=== PATIENT | female | born 1975 | race Caucasian/White ===

== ENCOUNTER 2018-09-10 08:41 | Inpatient (IN) | payer OTHER ==
[~2018-09-10] VITALS: Ht 167.6 cm; Wt 48.5 kg
--- NOTE | ~2018-09-10 | EKG ---
[place], [place] ELECTROCARDIOGRAM REPORT NAME: GANESH CABALLERO UNIT #: [id number] ROOM: 504 DOCTOR: CARISSA DRAFT REPORT BIRTHDATE: [birth year] [facility] Test Date: 2018-09-10 Test Time: 08:48:10 Pat Name: GANESH CABALLERO Department: Room: 504 Gender: F Employee Relations Specialist: : 1975 Requested By: RICKI DELEON Order Number: [id number] Reading MD: Silvia Casey MD Measurements Intervals [place] Rate: 67 P: 79 UT: 124 QRS: 77 QRSD: 73 T: 13 QT: 399 QTc: 422 Interpretive Statements Sinus rhythm Minimal ST depression, inferior leads Compared to ECG 07/20/2018 23:13:22 ST (T wave) deviation now present Electronically Signed On 09-11-2018 4:15:40 PDT by Silvia Casey MD CM:EKGRPT:ELECTROCARDIOGRAM REPORT [id number] RICKI FERRER DRAFT REPORT RICKI DELEON M.D.
--- NOTE | ~2018-09-10 | EKG ---
[place], [place] ELECTROCARDIOGRAM REPORT NAME: GANESH CABALLERO UNIT #: ROOM: DOCTOR: EPIPHANY DRAFT REPORT BIRTHDATE: [birth year] [facility] Test Date: 2018-09-10 Test Time: 08:48:10 Pat Name: GANESH CABALLERO Department: Patient ID: ELOH- Room: Gender: Laundry Room Attendant: : 1975 Requested By: RICKI DELEON Order Number: [id number] Reading MD: Measurements Intervals [place] Rate: 67 P: 79 AK: 124 QRS: 77 QRSD: 73 T: 13 QT: 399 QTc: 422 Interpretive Statements Sinus rhythm Minimal ST depression, inferior leads Compared to ECG 07/20/2018 23:13:22 ST (T wave) deviation now present CM:EKGRPT:ELECTROCARDIOGRAM REPORT [id number] RICKI FERRER DRAFT REPORT RICKI DELEON M.D.
--- NOTE | ~2018-09-10 | EKG ---
[place], [place] ELECTROCARDIOGRAM REPORT NAME: GANESH CABALLERO UNIT #: [id number] ROOM: 504 DOCTOR: CARISSA DRAFT REPORT BIRTHDATE: [birth year] [facility] Test Date: 2018-09-10 Test Time: 14:42:26 Pat Name: GANESH CABALLERO Department: Room: 504 Gender: F Jet Engine Mechanic: Kendra Levin : 1975 Requested By: RICKI DELEON Order Number: [id number] Reading MD: Silvia Casey MD Measurements Intervals [place] Rate: 62 P: 42 DE: 106 QRS: 74 QRSD: 76 T: 63 QT: 412 QTc: 419 Interpretive Statements Sinus rhythm Short DE interval Baseline wander in lead(s) V5 No previous ECG available for comparison Electronically Signed On 09-11-2018 5:00:18 PDT by Silvia Casey MD CM:EKGRPT:ELECTROCARDIOGRAM REPORT [id number] RICKI FERRER DRAFT REPORT RICKI DELEON M.D.
--- NOTE | ~2018-09-10 | EKG ---
[place], [place] ELECTROCARDIOGRAM REPORT NAME: GANESH CAABLLERO UNIT #: [id number] ROOM: 504 DOCTOR: CARISSA DRAFT REPORT BIRTHDATE: [birth year] [facility] Test Date: 2018-09-10 Test Time: 12:47:11 Pat Name: GANESH CABALLERO Department: Room: 504 Gender: F [employer] Teacher: Kendra Levin : 1975 Requested By: RICKI DELEON Order Number: [id number] Reading MD: Silvia Casey MD Measurements Intervals [place] Rate: 60 P: 46 VT: 109 QRS: 73 QRSD: 72 T: 73 QT: 421 QTc: 421 Interpretive Statements Sinus rhythm Short VT interval No previous ECG available for comparison Electronically Signed On 09-11-2018 4:17:45 PDT by Silvia Casey MD CM:EKGRPT:ELECTROCARDIOGRAM REPORT [id number] RICKI FERRER DRAFT REPORT RICKI DELEON M.D.
[2018-09-10 08:52] VITALS: BP 138/83
[2018-09-10 09:07] LABS: BASO # 0.1 10*3/uL (0.0-0.1); BASO % 0.6 % (0.0-1.0); EOS % 0.4 % (1.0-4.0); LYMPH # 1.2 10*3/uL (1.3-4.4); LYMPH % 11.2 % (27.0-41.0); MEAN CELL VOLUME 95.5 fl (81.0-99.0); MEAN CORPUSCULAR HGB 31.8 pg (27.0-31.0); MEAN CORPUSCULAR HGB CONC 33.3 g/dl (33.0-37.0); MEAN PLATELET VOLUME 9.6 fl (9.6-12.3); MONO # 0.6 10*3/uL (0.1-1.0); MONO % 5.3 % (3.0-9.0); NEUT # 8.8 10*3/uL (2.3-7.9); NEUT % 82.1 % (47.0-73.0); PLATELET COUNT AUTOMATED 218 10*3/uL (130-400); RED BLOOD COUNT 4.71 10*6/uL (4.10-5.10); RED CELL DISTRI WIDTH 12.9 % (0-14.5); WHITE BLOOD COUNT 10.7 10*3/uL (4.8-10.8)
[2018-09-10 09:16] LABS: ACT PARTIAL THROMBO TIME 24.2 SECONDS (20.0-32.1)
[2018-09-10 09:19] LABS: ALBUMIN 4.6 gm/dl (3.1-4.5); ALKALINE PHOSPHATASE 86 U/L (45-117); BUN 17 mg/dl (7-24); CHLORIDE 105 mmol/L (98-107); CREATININE 0.96 mg/dL (0.55-1.02); POTASSIUM 3.2 mmol/L (3.5-5.1); SGOT/AST 20 IU/L (3-35); SGPT/ALT 20 U/L (12-78); SODIUM 141 mmol/L (136-145); TOTAL PROTEIN 7.9 gm/dL (6.4-8.2)
[2018-09-10 09:21] LABS: TROPONIN I < 0.015 ng/ml (<0.045)
[2018-09-10 10:45] VITALS: BP 128/71
--- NOTE | 2018-09-10 10:45 | NUR ---
PATIENT TAKEN TO 5TH FLOOR AT THIS TIME BY THIS NURSE. SHE DENIES ANY WOUNDS. A&OX4.
[2018-09-10 11:00] VITALS: BP 143/72
--- NOTE | 2018-09-10 11:00 | NUR ---
A 43, admitted to , under the services of NATE Armstrong DO with a diagnosis of CHEST PAIN. Chief complaint is CHEST PAIN. Patient arrived via bed from ER. Monitor applied. Initial assessment completed. Vital signs taken and recorded. NATE ARMSTRONG DO notified of admission to the unit. Orders received. See assessment for past medical history, medications and allergies. Patient and/or family oriented to unit. [facility] visitation policy reviewed. Clothing/patient valuable form completed. SUZETTE AGUIRRE
--- NOTE | 2018-09-10 11:01 | NUR ---
BEDSIDE REPORT GIVEN TO JIMMY RN AT THIS TIME.
[2018-09-10] MEDS ORDERED: LOSARTAN-HCTZ1 EAC1 PO (11:13)
[2018-09-10] MEDS ORDERED: SOMA350 MG PO (11:13)
[2018-09-10] MEDS ORDERED: NORVASC5 MG PO (11:14)
[2018-09-10] MEDS ORDERED: CELEXA20 MG PO (11:14)
--- NOTE | 2018-09-10 11:14 | NUR ---
PHARMACY CALLED AT THIS TIME. MED LIST UPDATED PER POLICY.
[2018-09-10] MEDS ORDERED: PERCOCET 5-3251 EACH PO (11:15)
--- NOTE | 2018-09-10 15:51 | NUR ---
PT REQUESTS NICOTINE PATCH. DR STAUFFER NOTIFIED.
[2018-09-10 16:00] VITALS: BP 124/76
--- NOTE | 2018-09-10 19:30 | NUR ---
Patient is resting in bed with easy and regular respers on room air. Assessment is complete with no c/o or s/s of distress noted at this time. Bed is low, locked, and call light is within reach. Will continue to monitor.
[2018-09-10 20:00] VITALS: BP 132/67
--- NOTE | 2018-09-10 22:50 | NUR ---
Patient is resting in bed with no c/o or s/s of distress noted at this time. Call light is within reach.
[2018-09-11] VITALS: BP 114/73
--- NOTE | 2018-09-11 04:00 | NUR ---
Patient sleeping with easy and regular respers on room air. Call light is within reach, see shift assessment.
[2018-09-11 06:39] LABS: BUN 13 mg/dl (7-24); CHLORIDE 109 mmol/L (98-107); CHOLESTEROL 200 mg/dL (<200); CREATININE 0.88 mg/dL (0.55-1.02); HDL CHOLESTEROL 63 mg/dl (40-60); LDL CHOLESTEROL 124 mg/dL (9-159); SODIUM 142 mmol/L (136-145); TRIGLYCERIDES 65 mg/dl (<150); VLDL CHOLESTEROL 13 mg/dL (6-40)
[2018-09-11 06:45] LABS: BASO # 0.1 10*3/uL (0.0-0.1); BASO % 0.8 % (0.0-1.0); EOS # 0.1 10*3/uL (0.0-0.4); EOS % 1.2 % (1.0-4.0); HEMATOCRIT 45.1 % (37.0-47.0); HEMOGLOBIN 14.6 g/dl (12.0-16.0); LYMPH # 2.1 10*3/uL (1.3-4.4); LYMPH % 22.7 % (27.0-41.0); MEAN CELL VOLUME 97.4 fl (81.0-99.0); MEAN CORPUSCULAR HGB 31.5 pg (27.0-31.0); MEAN CORPUSCULAR HGB CONC 32.4 g/dl (33.0-37.0); MEAN PLATELET VOLUME 9.8 fl (9.6-12.3); MONO # 0.5 10*3/uL (0.1-1.0); MONO % 5.4 % (3.0-9.0); NEUT # 6.5 10*3/uL (2.3-7.9); NEUT % 69.6 % (47.0-73.0); PLATELET COUNT AUTOMATED 197 10*3/uL (130-400); RED BLOOD COUNT 4.63 10*6/uL (4.10-5.10); WHITE BLOOD COUNT 9.3 10*3/uL (4.8-10.8)
--- NOTE | 2018-09-11 07:44 | NUR ---
pt resting in bed. no distress noted. will monitor
[2018-09-11 07:49] LABS: VITAMIN D, 25-HYDROXY 22.7 ng/mL (30-100)
[2018-09-11 08:00] VITALS: BP 116/70
--- NOTE | 2018-09-11 10:10 | NUR ---
INFORMED SIGNED CONSENT OBTAINED FOR CGXT WITH DR SU. RESTING EKG NSR WITH PAC HR 62 Q WAVE OM AVR. AVL AND . BP 120/80 IN SUPINE POSITION, STANDING HR 80 BP 124/82. PT COMPLETED 11:OO OF A FRANSISCO PROTOCOL WITH PT COMPLETING TWO MINS OF STAGE IV AT 4.2 MPH AND A 16% GRADE. PT REACHED A PEAK HR OF 169 WHICH REPRESENTS 97% OF PREDICTED MAXIMUM AND A PEAK BP OF 200/40. NO ARRHYTHMIAS OR ST CHANGES NOTED. TEST TERMINATED DUE TO PHYSICIANS DISCRETION. LAST RECOVERY HR OF 105 BP 154/84. PT IN STABLE CONDITION, AWAITING NUCLEAR IMAGES.
[2018-09-11 12:00] VITALS: BP 149/91
--- NOTE | 2018-09-11 15:35 | NUR ---
Discharge instructions reviewed with patient/family. Patient receptive and verbalizes understanding. Follow-up care arranged. Written instructions given to patient/family. JERICHO LUCAS
== END 2018-09-11 15:36 | disposition home or self-care (01) | DRG 313 ==
LOC: ED 08:41 → 5E 10:38
PROVIDERS: Emergency Medicine; Internal Medicine; ADMIT Internal Medicine
PROC: 4A02XM4 Measurement of Cardiac Total Activity, External Approach (ICD-10-PCS; principal; 2018-09-11)
PROC: 3E033HZ Introduction of Radioactive Substance into Peripheral Vein, Percutaneous Approach (ICD-10-PCS; principal; 2018-09-11)
DX: R07.89 Other chest pain (principal); R06.02 Shortness of breath; R42 Dizziness and giddiness; E87.6 Hypokalemia; D72.810 Lymphocytopenia; I10 Essential (primary) hypertension; F17.210 Nicotine dependence, cigarettes, uncomplicated; Z82.49 Family history of ischemic heart disease and other diseases of the circulatory system; Z79.1 Long term (current) use of non-steroidal anti-inflammatories (NSAID); Z79.899 Other long term (current) drug therapy

== ENCOUNTER 2019-08-31 16:40 | Emergency (ER) | payer OTHER ==
[~2019-08-31] VITALS: Ht 170.1 cm; Wt 49.9 kg
[~2019-08-31 16:40] MED LIST: CELEXA20 MG PO; LOSARTAN-HCTZ1 EAC1 PO; NORVASC5 MG PO; PERCOCET 5-3251 EACH PO; SOMA350 MG PO
[2019-08-31] MEDS ORDERED: ZOFRAN4 MG PO (19:09)
== END 2019-08-31 19:14 | disposition home or self-care (01) ==
LOC: ED 16:40
DX: G43.909 Migraine, unspecified, not intractable, without status migrainosus (principal); I10 Essential (primary) hypertension; Z79.899 Other long term (current) drug therapy

== ENCOUNTER 2023-04-16 14:36 | Emergency (ER) | payer OTHER ==
[~2023-04-16] VITALS: Wt 55.8 kg
[~2023-04-16 14:36] MED LIST changes: +ZOFRAN4 MG PO
[2023-04-16] MEDS ORDERED: Ketorolac Tromethamine 30 MG/ML VIAL IM ONE (16:00)
[2023-04-16] MEDS ORDERED: methylPREDNISolone sod succ 125 MG VIAL IM ONE (16:00)
[2023-04-16] MEDS ORDERED: CYCLOBENZAPRINE5 M3 PO (18:08)
[2023-04-16] MEDS ORDERED: Cyclobenzaprine Hydrochlorid 10 MG TAB PO ONE (18:10)
== END 2023-04-16 18:54 | disposition home or self-care (01) ==
LOC: ED 14:36
DX: S39.012A Strain of muscle, fascia and tendon of lower back, initial encounter (principal); I10 Essential (primary) hypertension; F17.200 Nicotine dependence, unspecified, uncomplicated; Z98.51 Tubal ligation status; Z90.89 Acquired absence of other organs; Z98.890 Other specified postprocedural states; X50.1XXA Overexertion from prolonged static or awkward postures, initial encounter; Y93.89 Activity, other specified; Y92.89 Other specified places as the place of occurrence of the external cause; Y99.0 Civilian activity done for income or pay

== ENCOUNTER 2024-11-08 11:12 | Emergency (ER) | payer OTHER ==
[~2024-11-08] VITALS: Ht 170.1 cm; Wt 58.1 kg
[~2024-11-08 11:12] MED LIST changes: +CYCLOBENZAPRINE5 M3 PO
[2024-11-08] MEDS ORDERED: AMOX-CLAV 875-1 EACH PO (11:46)
[2024-11-08] MEDS ORDERED: Amoxicillin/Clavulanate Pota 875 MG TAB PO ONE (11:50)
[2024-11-08] MEDS ORDERED: Rabies Vaccine 1 ML VIAL IM ONE (11:50)
[2024-11-08] MEDS ORDERED: Tdap Vaccine 0.5 ML SYR (Adult Vaccine) IM ONE (11:55)
== END 2024-11-08 12:09 | disposition home or self-care (01) ==
LOC: ED 11:12
DX: S40.811A Abrasion of right upper arm, initial encounter (principal); S30.811A Abrasion of abdominal wall, initial encounter; F17.210 Nicotine dependence, cigarettes, uncomplicated; I10 Essential (primary) hypertension; G43.909 Migraine, unspecified, not intractable, without status migrainosus; Z90.89 Acquired absence of other organs; Z98.890 Other specified postprocedural states; W54.0XXA Bitten by dog, initial encounter; Y93.89 Activity, other specified; Y92.89 Other specified places as the place of occurrence of the external cause; Y99.8 Other external cause status

== ENCOUNTER 2024-11-11 11:17 | Emergency (ER) | payer OTHER ==
[~2024-11-11] VITALS: Wt 58.1 kg
[~2024-11-11 11:17] MED LIST changes: +AMOX-CLAV 875-1 EACH PO
[2024-11-11] MEDS ORDERED: Rabies Vaccine 1 ML VIAL IM ONE (11:20)
== END 2024-11-11 12:05 | disposition home or self-care (01) ==
LOC: ED 11:17
DX: S41.151D Open bite of right upper arm, subsequent encounter (principal); S31.159D Open bite of abdominal wall, unspecified quadrant without penetration into peritoneal cavity, subsequent encounter; F17.200 Nicotine dependence, unspecified, uncomplicated; Z23 Encounter for immunization; Z90.89 Acquired absence of other organs; W54.0XXD Bitten by dog, subsequent encounter

== ENCOUNTER 2024-11-15 12:09 | Emergency (ER) | payer OTHER ==
[~2024-11-15] VITALS: Ht 170.1 cm; Wt 58.1 kg
[2024-11-15] MEDS ORDERED: Rabies Vaccine 1 ML VIAL IM ONE (13:40)
== END 2024-11-15 14:28 | disposition home or self-care (01) ==
LOC: ED 12:09
DX: Z23 Encounter for immunization (principal); R19.7 Diarrhea, unspecified; I10 Essential (primary) hypertension; F17.210 Nicotine dependence, cigarettes, uncomplicated; Z90.89 Acquired absence of other organs

== ENCOUNTER 2024-11-22 15:23 | Emergency (ER) | payer OTHER ==
[~2024-11-22] VITALS: Ht 165.1 cm; Wt 58.1 kg
[2024-11-22] MEDS ORDERED: Rabies Vaccine 1 ML VIAL IM ONE (15:30)
== END 2024-11-22 15:47 | disposition home or self-care (01) ==
LOC: ED 15:23
DX: S40.811D Abrasion of right upper arm, subsequent encounter (principal); S30.811D Abrasion of abdominal wall, subsequent encounter; Z23 Encounter for immunization; G43.909 Migraine, unspecified, not intractable, without status migrainosus; I10 Essential (primary) hypertension; F17.200 Nicotine dependence, unspecified, uncomplicated; Z90.89 Acquired absence of other organs; W54.0XXD Bitten by dog, subsequent encounter